=== PATIENT | male | born 1960 | race Caucasian/White ===

== ENCOUNTER 2025-09-08 07:42 | Emergency (ER) | payer MEDICARE ==
[2025-09-08] MEDS ORDERED: Nitroglycerin 2% Ointment 1 INCH/1 GM Packet ONE (09:50)
[2025-09-08] MEDS ORDERED: niCARdipine 25 MG/10 ML SDV ONE (10:52)
== END 2025-09-08 13:29 | disposition short-term general hospital (02) ==
LOC: ERS 07:42
DX: I21.4 Non-ST elevation (NSTEMI) myocardial infarction (principal); I65.22 Occlusion and stenosis of left carotid artery; E27.8 Other specified disorders of adrenal gland; R29.705 NIHSS score 5; I10 Essential (primary) hypertension; I48.91 Unspecified atrial fibrillation; E11.9 Type 2 diabetes mellitus without complications; E78.5 Hyperlipidemia, unspecified; Z79.01 Long term (current) use of anticoagulants; Z79.84 Long term (current) use of oral hypoglycemic drugs; Z79.899 Other long term (current) drug therapy
CPT/HCPCS: 0042T; 70496; 70498; 71275; 74174; 84484; 93005; 96365; 99292